=== PATIENT | female | born 1970 | race Caucasian/White ===

== ENCOUNTER 2020-04-23 06:47 | Day surgery (SDC) | payer BC, OTHER ==
[~2020-04-23 06:47] MED LIST: Lactated Ringers 1,000 ML IV SCH; Lidocaine 1%/Sod Bicarbonate in NS 8.4% 1 ML Syringe IDERM PRN; Sodium Chloride 0.9% 10 ML Syringe FLUSH PRN
--- NOTE | 2020-04-23 07:14 | PCM.PREANE ---
Preanesthetic Assessment - Anesthesia/Transfusion/Family Hx Anesthesia History: Prior Anesthesia Without Reaction Family History of Anesthesia Reaction: No Transfusion History: No Prior Transfusion(s) - Review of Systems General: No Symptoms Pulmonary: No Symptoms Cardiovascular: No Symptoms Gastrointestinal: No Symptoms Neurological: No Symptoms Other: Reports: None - Physical Assessment NPO Status Date: 04/23/20 NPO Status Time: 00:00 Vital Signs: Last Vital Signs Temp 36.1 C 04/23/20 06:40 Pulse 74 04/23/20 06:40 Resp 16 04/23/20 06:40 BP 170/102 H 04/23/20 06:40 Pulse Ox 95 04/23/20 06:40 ASA Class: 2 Mental Status: Alert & Oriented x3 Airway Class: Mallampati = 1 Dentition: Reports: Normal Dentition Thyro-Mental Finger Breadths: 3 Mouth Opening Finger Breadths: 3 ROM/Head Extension: Full Lungs: Clear to Auscultation, Normal Respiratory Effort Cardiovascular: Regular Rate, Regular Rhythm - Allergies Allergies/Adverse Reactions: Allergies Allergy/AdvReac Type Severity Reaction Status Date / Time acetaminophen Allergy Itching Verified 04/22/20 12:20 [From Darvocet-N] amoxicillin Allergy Itching Verified 04/22/20 12:20 azithromycin Allergy Itching Verified 04/22/20 12:20 clarithromycin Allergy Itching Verified 04/22/20 12:20 levofloxacin Allergy Cannot Verified 04/22/20 12:20 Remember oxycodone Allergy Cannot Verified 04/22/20 12:20 Remember oxycodone HCl [From Percocet] Allergy Itching Verified 04/22/20 12:20 propoxyphene napsylate Allergy Itching Verified 04/22/20 12:20 [From Darvocet-N] tramadol Allergy Itching Verified 04/22/20 12:20 codeine AdvReac Irritabilit Verified 04/22/20 12:20 y - Acknowledgements Anesthesia Type Planned: MAC Pt an Appropriate Candidate for the Planned Anesthesia: Yes Alternatives and Risks of Anesthesia Discussed w Pt/Guardian: Yes Pt/Guardian Understands and Agrees with Anesthesia Plan: Yes PreAnesthesia Questionnaire HEENT History: Reports: Allergic Rhinitis, Impaired Vision, Sinusitis Cardiovascular History: Reports: High Cholesterol, Hypertension Respiratory History: Reports: Asthma Gastrointestinal History: Reports: GERD, Irritable Bowel Syndrome Genitourinary History: Reports: None [employer]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 [employer] History: Reports: Other (See Below) Other OB/BYN History: galactorrhea, breast lump Musculoskeletal History: Reports: Other (See Below) Other Musculoskeletal History: right knee pain Neurological History: Reports: Migraines Psychiatric History: Reports: Other (See Below) Other Psychiatric History: insomnia Endocrine/Metabolic History: Reports: None Hematologic History: Reports: None Immunologic History: Reports: None Oncologic (Cancer) History: Reports: None Dermatologic History: Reports: None - Past Surgical History Head Surgeries/Procedures: Reports: None HEENT Surgical History: Reports: Tonsillectomy Cardiovascular Surgical History: Reports: None Respiratory Surgical History: Reports: None GI Surgical History: Reports: Colonoscopy, Hernia, Inguinal, Hernia Repa ir/Other, Lucretia Fundoplication Female Surgical History: Reports: Section, Cervical Conization, Tubal Ligation Endocrine Surgical History: Reports: None Neurological Surgical History: Reports: C-Spine Other Neurological Surgeries/Procedures: 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 Musculoskeletal Surgical History: Reports: None Oncologic Surgical History: Reports: None Dermatological Surgical History: Reports: None - SUBSTANCE USE Smoking Status *Q: Never Smoker Recreational Drug Use History: No - HOME MEDS Home Medications: Home Meds Albuterol [Proventil Neb Soln] 1 dose NEB Q6H PRN 04/22/20 [History] Albuterol [Take Home: Albuterol 18 GM, 1 INH Pack] 1 - 2 puff INH Q6H PRN 04/22/20 [History] Calcium Carbonate [Tums] 1,000 mg PO QID PRN 04/22/20 [History] Docusate Sodium [Colace] 100 mg PO BID PRN 04/22/20 [History] Escitalopram Oxalate 10 mg PO DAILY 04/22/20 [History] Lactobacillus Combination No.4 [Probiotic] 1 cap PO DAILY 04/22/20 [History] Loratadine [Claritin] 10 mg PO QAM 04/22/20 [History] Losartan [Cozaar] 50 mg PO QAM 04/22/20 [History] Montelukast [Singulair] 10 mg PO BEDTIME 04/22/20 [History] Omeprazole 40 mg PO DAILY 04/22/20 [History] Ondansetron [Ondansetron ODT] 4 mg PO QID PRN 04/22/20 [History] Oxymetazoline HCl [Vicks Sinex] 1 dose CARINA ASDIRECTED 04/22/20 [History] Venlafaxine [Effexor] 75 mg PO DAILY 04/22/20 [History] diphenhydrAMINE [Benadryl] 50 mg PO BEDTIME 04/22/20 [History] - CURRENT (IN HOUSE) MEDS Current Meds: Current Medications Lactated Ringer's (Ringers, Lactated) 1,000 mls @ 125 mls/hr IV ASDIRECTED VALE Stop: 04/23/20 23:00 Lidocaine/Sodium Bicarbonate (Buffered Lidocaine 1% In Ns 8.4%) 0.25 ml IDERM ONETIME PRN PRN Reason: Prior to IV Start Stop: 04/23/20 18:00 Sodium Chloride (Saline Flush) 10 ml FLUSH ASDIRECTED PRN PRN Reason: Keep Vein Open Stop: 04/23/20 18:00 Discontinued Medications Lactated Ringer's (Ringers, Lactated) 1,000 mls @ 125 mls/hr IV ASDIRECTED VALE Stop: 03/12/20 23:00 Lidocaine/Sodium Bicarbonate (Buffered Lidocaine 1% In Ns 8.4%) 0.25 ml IDERM O NETIME PRN PRN Reason: Prior to IV Start Stop: 03/12/20 18:00 Sodium Chloride (Saline Flush) 10 ml FLUSH ASDIRECTED PRN PRN Reason: Keep Vein Open Stop: 03/12/20 18:00
[2020-04-23] MEDS ORDERED: Lidocaine 1% 4 ML ONE (07:24)
[2020-04-23] MEDS ORDERED: Propofol 200 MG/20 ML SDV ONE ×3 (07:24→09:09)
[2020-04-23] MEDS ORDERED: fentaNYL 100 MCG/2 ML SDV ONE (08:34)
--- NOTE | 2020-04-23 09:32 | PCM.OPNOTE ---
- General Post-Op/Procedure Note Date of Surgery/Procedure: 04/23/20 Operative Procedure(s): EGD and colonoscopy with hemorrhoid banding Findings: 1. distal esophagitis 2. Irregular GE junction 3. hemorrhagic gastritis 4. Duodenitis 5. Ascending colon polyps x2 6. Descending colon polyp 7. Rectal polyp 8. Proctitis 9. Diverticulosis Pre Op Diagnosis: GERD, nausea, rectal bleeding, lower abdominal pain Post-Op Diagnosis: same [place] [facility] [place]geon: Jennifer Morales Anesthesia Provider: Lucia Rutledge Pathology: 1. Duodenal biopsy 2. Gastric antrum biopsy 3. GE junction biopsies 4. Ascending colon polyps x2 5. Descending colon polyp 6. Rectal polyp 7. Rectal biopsies Fluid Replacement, Intraop: 1,200 Complications: none apparent Condition: Good
--- NOTE | 2020-04-23 09:33 | PCM.PRNOTE ---
- Free Text/Narrative Note: Operative Report Date of Procedure: April 23, 2020 Pre Op Diagnosis: GERD, heartburn, lower abdominal pain, rectal bleeding Post-Op Diagnosis: same Operative Procedures: 1. EGD with biopsy 2. Colonoscopy to the cecum with biopsy Primary Surgeon: Jennifer Morales MD Anesthesia Provider: Lucia Rutledge CRNA Anesthesia Technique: MAC IV Fluid Replacement, Intraop: 1200cc crystalloid Output, Urine Amount: 0cc EBL in mLs: 0cc Findings: 1. distal esophagitis 2. Irregular GE junction 3. hemorrhagic gastritis 4. Duodenitis 5. Ascending colon polyps x2 6. Descending colon polyp 7. Rectal polyp 8. Proctitis 9. Diverticulosis Specimens: 1. Duodenal biopsy 2. Gastric antrum biopsy 3. GE junction biopsies 4. Ascending colon polyps x2 5. Descending colon polyp 6. Rectal polyp 7. Rectal biopsies Drain/Tubes: None Indication: The patient is a 49 year-old lady who presented to the clinic with symptoms of lower abdominal pain and rectal bleeding. She also has had a lucretia fundoplication in the past and continues to have heartburn symptoms. The patient was consented for a diagnostic EGD and colonoscopy with possible hemorrhoid banding. Risks of bleeding, and perforation were discussed, and the patient agreed to the risks and wished to proceed. Description of the procedure: The patient was taken back to the endoscopy suite, and placed in the left lateral decubitus position. A bite block was placed. The patient was sedated with MAC anesthesia. The Olympus video endoscope was inserted into the oropharynx and guided under direct vision into the esophagus, stomach, and duodenum. The duodenal bulb and second portion of the duodenum were remarkable for friability and erythema. Biopsies were taken with a cold biopsy forceps. The gastric antrum was inspected and cold biopsy forceps were used to take tissue samples for H. pylori. There were superficial erosions in the antrum and hemorrhagic gastritis. Additional areas of superficial erosions were noted in the body of the stomach. The scope was withdrawn to the stomach and retroflexed. There was no increased fluid, food or secretions in the upper gastrointestinal tract. The patient had evidence of a Lucretia fundoplication, but there was space noted around the wrap visible from the retroflexed position indicating a possible recurrence. The scope was withdrawn to the esophagus. The Z-line was irregular and biopsies were taken in four quadrants with a cold biopsy forceps. There was linear erythema in the distal esophagus consistent with esophagitis, without ulceration or erosions. The endoscope was then withdrawn. Next, anorectal examination was performed. The patient had two clusters of anal warts and external hemorrhoids visible. The scope was placed into the rectum and advanced to cecum. Upon reaching the cecum, and the patients cecum was entered. There was mild tortuosity of the colon. The ileocecal valve was well vi sualized and the appendiceal orifice identified. At this point, the scope was slowly withdrawn, paying attention to the mucosa. The patient had good bowel prep, greater than 90% of the mucosa was visible. Two colon polyps ranging 2-3mm were seen in the ascending colon and removed with a jumbo cold biopsy forceps. A 3mm semi-pedunculated descending colon polyp was noted and removed with a jumbo cold biopsy forceps. In the rectum, there was erythema and superficial petechiae noted consistent with proctitis. Biopsies of the rectal mucosa were taken with a cold biopsy forceps. A flat 3mm polyp was seen in the rectum, and removed with a cold biopsy forceps. The scope was retroflexed and some enlarged hemorrhoidal tissue was noted. The scope was placed back in the lumen and excess air was aspirated. The scope was removed. An anoscope was then inserted and 3 hemorrhoid bands were placed. The procedure was terminated. The patient tolerated the procedure well. Complications: None apparent Condition: The patient was transported to PACU in stable condition. Jennifer Morales MD General Surgery
--- NOTE | 2020-04-23 09:35 | PCM48HPAN ---
Post Anesthesia Note - EVALUATION WITHIN 48HRS OF ANESTHETIC Vital Signs in Normal Range: Yes Patient Participated in Evaluation: Yes Respiratory Function Stable: Yes Airway Patent: Yes Cardiovascular Function Stable: Yes Hydration Status Stable: Yes Pain Control Satisfactory: Yes Nausea and Vomiting Control Satisfactory: Yes Mental Status Recovered: Yes Vital Signs: Last Vital Signs Temp 36.1 C 04/23/20 06:40 Pulse 74 04/23/20 06:40 Resp 16 04/23/20 06:40 BP 170/102 H 04/23/20 06:40 Pulse Ox 95 04/23/20 06:40
[2020-04-23 10:13] VITALS: BP 178/113; PULSE 82
== END 2020-04-23 10:23 | disposition home or self-care (01) ==
LOC: JD.SDS 06:47
PROVIDERS: ATTEND Surgery
DX: D12.2 Benign neoplasm of ascending colon (principal); D12.4 Benign neoplasm of descending colon; K31.89 Other diseases of stomach and duodenum; K29.71 Gastritis, unspecified, with bleeding; K57.30 Diverticulosis of large intestine without perforation or abscess without bleeding; K29.80 Duodenitis without bleeding; K21.0 Gastro-esophageal reflux disease with esophagitis; Z01.812 Encounter for preprocedural laboratory examination; Z20.828 Contact with and (suspected) exposure to other viral communicable diseases; K62.1 Rectal polyp; K62.89 Other specified diseases of anus and rectum; K25.9 Gastric ulcer, unspecified as acute or chronic, without hemorrhage or perforation; K64.4 Residual hemorrhoidal skin tags; A63.0 Anogenital (venereal) warts; E78.00 Pure hypercholesterolemia, unspecified; I10 Essential (primary) hypertension; J45.909 Unspecified asthma, uncomplicated; Z88.0 Allergy status to penicillin; Z98.890 Other specified postprocedural states; Z88.1 Allergy status to other antibiotic agents; Z88.6 Allergy status to analgesic agent; Z88.5 Allergy status to narcotic agent; Z88.8 Allergy status to other drugs, medicaments and biological substances; Z79.899 Other long term (current) drug therapy
CPT/HCPCS: 43239; 45380; 87635; J2001; J2704; J3010; J7120; U0002